=== PATIENT | female | born 1965 | race African-American/Black ===

== ENCOUNTER 2021-06-08 16:17 | Emergency (ER) | payer OTHER, SELFPAY ==
[2021-06-08] VITALS (13 sets, daily range): BP systolic 101–176; BP diastolic 61–104; PULSE 75–110; RESP 18–25; TEMP 36.6–36.7; O2SAT 95–100
--- NOTE | ~2021-06-08 | XR_ITS ---
EXAMINATION: XR chest 1V portable DATE: 06/08/2021 18:15 INDICATION: Shortness of breath. COVID positive. TECHNIQUE: frontal and lateral views of the chest were obtained. COMPARISON: None FINDINGS: Mild patchy airspace opacities in the bilateral lower lung zones. No pleural effusion or pneumothorax . The cardiomediastinal silhouette is normal. IMPRESSION: 1. Patchy airspace opacities in the bilateral lower lung zones consistent with COVID pneumonia. Reviewed, dictated and finalized at location H. WORKER
[2021-06-08 18:22] LABS: Basophils Percent Auto 0.5 % (0.2-1.2); Hematocrit 43.9 % (37.0-47.0); Hemoglobin 13.3 g/dL (12.0-15.0); Immature Granulocyte Absolute 0.01 K/mm3 (0.00-0.031); Immature Granulocyte Percent A 0.2 % (0-0.5); Lymphocytes Absolute Auto 0.98 K/mm3 (0.9-3.2); Lymphocytes Percent Auto 23.9 % (18.3-44.2); Mean Corpuscular HGB Conc 30.3 g/dl (32-36); Mean Corpuscular Hemoglobin 25.4 pg (26-34); Mean Corpuscular Volume 83.8 fl (80-100); Mean Platelet Volume 11.8 fl (7.4-10.4); Monocytes Absolute Auto 0.3 K/mm3 (0.1-0.6); Monocytes Percent Auto 7.6 % (2.6-8.5); Neutrophils Absolute Auto 2.8 K/mm3 (1.3-6.7); Neutrophils Percent Auto 67.8 % (45.5-73.1); Platelet Count Result 198 k/mm3 (150-375); Red Blood Count 5.24 M/mm3 (4.2-5.4); Red Cell Distribution Width 14.9 % (11.5-14.5); White Blood Count 4.1 K/mm3 (4.5-10.0)
[2021-06-08 18:54] LABS: Alanine Aminotransferase 31 U/L (4-35); Albumin Level 4.2 g/dL (3.5-5.1); Alkaline Phosphatase 81 U/L (38-126); Anion Gap 7 mmol/L (8-16); Aspartate Amino Transferase 59 U/L (14-36); Bilirubin,Total 0.6 mg/dL (0.2-1.3); Blood Urea Nitrogen 14 mg/dL (7-17); Calcium 8.5 mg/dL (8.4-10.2); Carbon Dioxide 22 mmol/L (22-30); Chloride 102 mmol/L (98-107); Estimated CRCL calculation 76 ml/min; Estimated Glomerular Filt Rate > 60; Glucose 116 mg/dL (65-110); Lipase 216 U/L (23-300); Potassium 4.5 mmol/L (3.4-5.0); Sodium 131 mmol/L (137-145)
[2021-06-08] MEDS: BENZONATATE 100 MG CAPSULE 200 MG PO (19:35)
--- NOTE | 2021-06-08 20:45 | ED.GENADULT ---
HPI - General Adult General Chief complaint: Unspecified Stated complaint: COVID positive, hallucinating Time Seen by Provider: 06/08/21 18:58 History of Present Illness HPI narrative: Patient is a 55-year-old female who presents ER with Covid related symptoms. Patient began feeling ill on 05/30 and was diagnosed 2 days later. She has been having fevers and chills and weakness. She has cough with occasional shortness of breath. She has lost taste and smell. She reports that when she is sleeping she has bad dreams. This is making her anxious. She has no PCP and has not received monoclonal antibodies. Related Data Allergies Allergy/AdvReac Type Severity Reaction Status Date / Time No Known Allergies Allergy Verified 06/08/21 19:40 Review of Systems Review of Systems: All systems reviewed & are unremarkable except as noted in HPI and below Constitutional: Constitutional: Reports chills, Reports fatigue, Reports fever(s) and Reports lethargy ENT: Reports nasal congestion and Denies sore throat Comments: Loss of taste and smell Cardiovascular: Cardiovascular: Denies chest pain, Denies rapid heart rate and Denies radiating jaw, neck or arm pain Respiratory: Respiratory: Reports cough, Reports dyspnea and Denies wheezing Gastrointestinal: Gastrointestinal: Denies abdominal pain, Reports diarrhea and Reports nausea PMFSH Past Medical History Medical History (Updated 06/08/21 @ 22:30 by Jose Antonio Tate MD) Healthy female adult Surgical History Surgical History (Updated 06/08/21 @ 20:56 by Jose Antonio Tate MD) H/O gastric sleeve History of section History of hand surgery Social History Social History (Updated 06/08/21 @ 20:56 by Jose Antonio Tate MD) Smoking status: Never smoker Exam Narrative: GENERAL: Well-appearing, well-nourished, and in no acute distress. HEAD: Normocephalic, atraumatic. EYES: PERRL and EOMI. ENT: Mucous membranes moist. CHEST: Clear to auscultation. No respiratory distress. Frequent coughing. HEART: Regular rate and rhythm. Normal peripheral pulses. ABDOMEN: Soft, nontender, nondistended. EXTREMITIES: Normal range of motion. No edema. SKIN: Warm, dry, no rash. NEURO: Alert and oriented x3. PSYCH: Normal mood and affect. Course Course Emergency Course: Patient informed of results. Discharge home with supportive therapy including albuterol and Tessalon Perles. We will give her PCP follow-up. Vital Signs Vital signs: Vital Signs Temperature 97.8 F 06/08/21 16:20 Pulse Rate 110 H 06/08/21 16:20 Respiratory Rate 20 06/08/21 16:20 Blood Pressure 131/90 06/08/21 16:20 Pulse Oximetry 95 06/08/21 16:20 Temperature 98.1 F 06/08/21 18:30 Pulse Rate 90 06/08/21 20:32 Respiratory Rate 20 06/08/21 20:32 Blood Pressure 108/69 06/08/21 20:01 Pulse Oximetry 98 06/08/21 20:32 Medical Decision Making Vital Signs Vital Signs: Vital Signs Temperature 97.8 F 06/08/21 16:20 Pulse Rate 110 H 06/08/21 16:20 Respiratory Rate 20 06/08/21 16:20 Blood Pressure 131/90 06/08/21 16:20 Pulse Oximetry 95 06/08/21 16:20 Temperature 98.1 F 06/08/21 18:30 Pulse Rate 90 06/08/21 20:32 Respiratory Rate 20 06/08/21 20:32 Blood Pressure 108/69 06/08/21 20:01 Pulse Oximetry 98 06/08/21 20:32 Lab Data Result diagrams: 06/08/21 18:16 06/08/21 18:33 Labs: Lab Results 06/08/21 06/08/21 06/08/21 Range/Units 18:16 18:33 20:51 WBC 4.1 L (4.5-10.0) K/mm3 RBC 5.24 (4.2-5.4) M/mm3 Hgb 13.3 (12.0-15.0) g/dL Hct 43.9 (37.0-47.0) % MCV 83.8 (80-100) fl MCH 25.4 L (26-34) pg MCHC 30.3 L (32-36) g/dl RDW 14.9 H (11.5-14.5) % Plt Count 198 (150-375) k/mm3 MPV 11.8 H (7.4-10.4) fl Immature Gran % (Auto) 0.2 (0-0.5) % Neut % (Auto) 67.8 (45.5-73.1) % Lymph % (Auto) 23.9 (18.3-44.2) % [place] % (Auto) 7.6 (2.6-8.5) % Eos
[2021-06-08 21:07] LABS: Add Urine Microscopic? YES; Appearance Urine Clear (Clear); Bacteria Urine Trace /hpf; Bilirubin Urine Negative (Negative); Color Urine Amber (Yellow); Glucose Urine UA Negative (Negative); Ketones Urine 1+ mg/dL (Negative); Leukocyte Esterase Ur Trace LEU/UL (Negative); Mucus Urine Heavy /lpf; Nitrate Urine Negative (Negative); Protein Urine 2+ mg/dL (Negative); Specific Grav Ur 1.029 (1.001-1.035); Squamous Epithelial Cell Urine Occasional /hpf (Few); Urobilinogen Urine Negative mg/dL (<2.0)
[2021-06-08 21:10] LABS: Blood Urine Negative (Negative)
== END 2021-06-08 22:55 | disposition home or self-care (01) ==
PROVIDERS: Emergency Medicine; Emergency Provider Emergency Medicine
DX: U07.1 COVID-19 (principal); J12.82 Pneumonia due to coronavirus disease 2019
CPT/HCPCS: 36415; 71045; 80053; 81001; 83690; 85025; 87086; 87088; 99283; A9270

== ENCOUNTER → 2021-08-29 04:42 | Outpatient (CLI) | payer OTHER, SELFPAY ==
[2021-08-29 11:30] LABS: SARS-CoV-2 RNA PCR Negative
== END ==
PROVIDERS: PCP Family Medicine; Visit Provider Surgery
DX: Z01.812 Encounter for preprocedural laboratory examination (principal); Z20.822 Contact with and (suspected) exposure to COVID-19
CPT/HCPCS: C9803; U0003; U0005

== ENCOUNTER 2021-09-01 01:08 | Day surgery (SDC) | payer OTHER, SELFPAY ==
[2021-08-27 10:14] VITALS: BMI 38.7
--- NOTE | 2021-08-27 10:26 | PC.NURSE ---
Report to the Outpatient Waiting Room, entrance under the green pavilion located off [facility], at time 1130 on date 09/01/21. OR Time: 1330. - You and your visitor will be asked a series of questions to screen for COVID 19 for your protection. - A mask is required within the hospital. One visitor will be allowed to accompany the patient into the hospital. Patients visitor will be instructed to remain with patient at all times or leave the building. We will allow the visitor to come back to the postoperative area when patient is ready. Preoperative COVID Testing Requirements: COVID TEST 08/29 AT 0910 No COVID Test needed if: (proof is required; if not received patient will have Rapid Test prior to entry) - Patient has received COVID Vaccine at least 14 days prior to procedure date or - Patient has positive COVID test result within last 90 days of surgery date. COVID Test needed if above criteria is not met If not COVID vaccinated a COVID test must be conducted within 72 hours of surgery and patient is asked to isolate self from time of testing until procedure. You will go to the [facility] for your COVID testing. The [facility] site is located at the corner of [address] [facility]. You will only be called if COVID results are positive and your surgeon may reschedule your elective surgery date. Patients may have clear liquids (water, carbonated beverages, clear teas, apple juice) until 3 hours prior to surgery with a maximum of 20 ounces. - No food from midnight until time of surgery Take the following medications with a SIP of water the morning of surgery: CEPHALEXIN, OXYCODONE (IF NEEDED) Medications to discontinue per physician: VITAMINS/SUPPLEMENTS Date to take last dose: 08/28/21 Please no make-up, nail urdu, hairspray, perfume, deodorant, or body powder the day of surgery. No jewelry (including any body piercings) or valuables the day of surgery, leave them at home. Please take a shower or bath the night before, or the morning of, surgery with an antibacterial soap. Wear comfortable, loose fitting clothing. - Jewelry must be removed prior to entering the operating room. Rings and piercings that are not removed may be cut off. - The hospital will not accept responsibility for valuables. - Please leave all valuables, including medications, at home the day of surgery. If you are going home after surgery, a licensed peg driver must drive you home. - NO public transportation without another adult. - We recommend that an adult stay with you for 24 hours following discharge. - We also recommend that you do not drive, make important decision, drink alcoholic beverages, or take any drugs that were not prescribed by your health care provider for at least 24 hours after your discharge time. Follow any additional instructions given to you from your surgeon. Telephone instructions given to URSZULA KING and asked if any additional questions and then verbalized understanding. Patient advised to call surgeon office or pre surgery nurse liaison [phone] if any additional questions.
[2021-09-01 12:30] VITALS: BP 155/106; PULSE 71; RESP 16; TEMP 36.1; O2SAT 100
[2021-09-01] MEDS: LACTATED RINGERS 1,000 ML 30 ML IV CONT (12:30)
[2021-09-01 12:55] VITALS: BP 154/90; PULSE 68
--- NOTE | 2021-09-01 13:11 | P.PNAN_ITS ---
Anes - Initial Pre Proc Eval Procedure: Operation Date: 09/01/21 13:30 Proposed Procedures p Excision of Left Shoulder Subcutaneous Mass - Handy Banda MD Date/Time: 09/01/21 13:11 Surgeon: Handy Banda MD Pre Op Diagnosis: Lt Shoulder Mass Patient Data Age: 55 Gender: F Height: 1.68 m Weight: 108 kg Last Vital Signs Temp 36.1 C L 09/01/21 12:30 Pulse 68 09/01/21 12:55 Resp 16 09/01/21 12:30 BP 154/90 H 09/01/21 12:55 Pulse Ox 100 09/01/21 12:30 Allergies Allergy/AdvReac Type Severity Reaction Status Date / Time No Known Allergies Allergy Verified 09/01/21 12:49 Home Medications Medication Instructions Recorded Confirmed Type oxycodone 10 mg tablet 10 mg PO Q8H PRN 06/18/21 09/01/21 History omeprazole 40 mg capsule,delayed 40 mg PO DAILY PRN 08/15/21 09/01/21 History release cephalexin 500 mg capsule 500 mg PO Q8H 08/21/21 09/01/21 History multivitamin with iron 1 tablet PO DAILY 08/21/21 09/01/21 History cholecalciferol (vitamin D3) 50 50 mcg PO BID cap 08/26/21 09/01/21 History mcg (2,000 unit) capsule Patient hx anesthesia problems: none Family hx anesthesia problems: none Results Review: All pre-operative results and documents have been reviewed as part of the pre-operative evaluation. [facility] Past Medical History Medical History History of blood transfusion Ingrown toenail ANTONIA (obstructive sleep apnea) Vitamin D deficiency Surgical History Surgical History Bilateral bunions H/O gastric sleeve (~2013) History of bunionectomy of both great toes History of section (~1987) 1992 History of hand surgery (Unknown) 2020 right hand Hx of gastric bypass 2020 Revision (now has Edcu-R-hepyffn bypass) Social History Social History Social History: Single lives with son. Smoking status: Never smoker Alcohol intake: never Substance use: never Substance use type: does not use Living arrangements: with family Gender identity (if verbalized by the patient): Female Sexual Orientation (if Verbalized by the Patient): Straight or Heterosexual Spiritual care concerns: No Agree to blood products: Yes Anes - Eval Final PreProcedure Day of Procedure 09/01/21 13:11 Patient weight: obese Heart: regular rate and rhythm Lungs: decreased breath sounds Airway: Mallampati scale class II Neurological: alert and oriented Last oral intake: >/= 8 hours ASA classification: III Emergent: no Anesthetic plan: proceed Anesthesia type and monitoring: general GIVS and standard monitoring Results Review: All pre-operative results and documents have been reviewed as part of the pre-operative evaluation. Informed Consent: The patient's anesthetic plan and its attendant risks and benefits were discussed with the patient/family/POA. Questions were solicited and answers provided to the satisfaction of the patient/family/POA.
--- NOTE | 2021-09-01 13:20 | WPDHPUPDATE1 ---
History and Physical Update Update Date/Time: 09/01/21 13:20 History and Physical has been reviewed, including an updated exam of the patient. There are NO changes in the patient's condition. Risks, benefits, and alternatives have been discussed and questions answered. Patient agrees to proceed with procedure.
[2021-09-01] MEDS: ceFAZolin 2 GM/D5W 50 ML 2 GM/50 ML BAG IVPB (13:46)
[2021-09-01] MEDS: BUPIVACAINE/EPINEPHRINE 0.25% 10 ML VIAL 20 ML INFILTRATE (14:11)
[2021-09-01 14:38] VITALS: BP 113/68; PULSE 75; RESP 14; O2SAT 95
--- NOTE | 2021-09-01 14:52 | W.PM.PROC2 ---
Procedure Note - Detailed Date of Procedure 09/01/21 Pre-op Diagnosis Lt Shoulder subcutaneous Mass Post-op Diagnosis Same (Suspected lipoma) Procedure Performed Excision of subcutaneous mass top of left shoulder (4 x 2.5cm) Surgeon Handy Banda MD Instrument And Control Technician BERNADETTE Rene, OR 1st assist Anesthesia Local (0.25% Marcaine with epinephrine) and Other (GIVS with LMA) Indications Patient has an enlarging subcutaneous mass that is given assumed if her discomfort on the top of her left shoulder. This is situated right where her bra strap comes across her shoulder. Findings Abnormal appearing subcutaneous fat consistent with lipoma. Description of Procedure The patient was placed in the supine position. After induction of general anesthesia with an LMA placement we positioned the patient with a bump behind her left shoulder and back to rotate her slightly toward the right. After a surgical time out confirming patient and procedure the patient was prepped and draped in the usual sterile fashion. This exposed the top of the left shoulder nicely. The subcutaneous mass was positioned on the superior or upper side of the left shoulder prior to excision it measured about 5 x 2.5 cm in size. Local anesthetic was administered subcutaneously directly over the palpable soft mass. A direct incision was made over the lesion. I then carefully made a incision lifting the skin off of the subcutaneous mass both anteriorly and superiorly. Once it was visible within the incision having incise the subcutaneous tissue over it and began bulging through the subcutaneous tissue we grasped it with a Allis clamp. There was a thin capsule on the lipoma. I continued to elevate this and dissected it with Bovie cautery off the underlying fascial tissues and the overlying skin from lateral to medial until it was completely removed. A small satellite lipoma was removed medial to the large one. This was sent in the same container and was only about 0.5 x 0.5 cm in size. The excision was done taking a thin margin circumferentially. I dissected down to the deep subcutaneous tissues and then completely excised the lesion. Bleeding was controlled with electrocautery. A carefully inspected the entire inside portion of the cavity where the lipoma had been sitting. There was no other obvious fatty masses and no bleeding The wound was closed in two layers. I closed the subcutaneous tissue with interrupted sutures. An un-dyed 3-0 vicryl deep dermal and then a 4-0 undyed Monocryl running subcuticular closure was completed. Surgical glue applied as dressing. Patient tolerated this well. Implants none Estimated Blood Loss 3 Drains No Packing No Pathology Yes (4.0 x 2.5 cm mass) Complications No immediate complications Condition Stable Disposition Same day
[2021-09-01 15:08] VITALS: BP 134/87; PULSE 55; RESP 14; O2SAT 98
[2021-09-01 15:38] VITALS: BP 113/68; PULSE 75; RESP 14
[2021-09-01 16:08] VITALS: BP 122/79; PULSE 70; RESP 14
== END 2021-09-01 16:35 | disposition home or self-care (01) ==
PROVIDERS: PCP Family Medicine; Visit Provider Surgery
PROC: (CPT 24071; principal; 2021-09-01 13:30)
DX: D17.22 Benign lipomatous neoplasm of skin and subcutaneous tissue of left arm (principal); G47.33 Obstructive sleep apnea (adult) (pediatric); E55.9 Vitamin D deficiency, unspecified; Z98.0 Intestinal bypass and anastomosis status; E66.9 Obesity, unspecified; Z68.38 Body mass index [BMI] 38.0-38.9, adult
CPT/HCPCS: 24071; 88304; J0690; J1100; J2250; J2405; J2704; J3010; J7120

== ENCOUNTER 2021-11-29 08:44 | Outpatient (CLI) | payer OTHER, SELFPAY ==
--- NOTE | ~2021-11-29 | MR_ITS ---
EXAMINATION: MR lumbar spine wo con DATE: 11/29/2021 09:46 INDICATION: M79.606 - Pain in leg, unspecified . TECHNIQUE: Magnetic resonance imaging (MRI) of the lumbar spine was performed without intravenous con trast. Sequences included sagittal T2-weighted FSE, sagittal T2-weighted FS FSE, sagittal T1-weighted FSE, and axial T2-weighted FSE. COMPARISON: None FINDINGS: The last fully formed and hydrated disc is designated L5-S1. The marrow signal is benign an d homogenous. 2 mm anterolisthesis of L4 on L5 Conus terminates at L1. Multilevel disc dehydration. T he following disc levels are specifically discussed: T11-T12: The disc does not extend beyond the endplate margin. There is mild facet joint osteoarthriti s. There is no neural foraminal stenosis. There is no central canal stenosis. T12-L1: The disc does not extend beyond the endplate margin. There is moderate facet joint osteoarthr itis. There is no neural foraminal stenosis. There is no central canal stenosis. L1-L2: Mild diffuse bulge There is moderate facet joint osteoarthritis. There is no neural foraminal stenosis. There is no central canal stenosis. L2-L3: The disc does not extend beyond the endplate margin. There is moderate facet joint osteoarthri tis. There is no neural foraminal stenosis. There is no central canal stenosis. L3-L4: Moderate diffuse bulge. There is moderate facet joint osteoarthritis. There is mild bilateral neural foraminal stenosis. There is mild central canal stenosis. L4-L5: Moderate diffuse bulge. There is severe facet joint osteoarthritis. There is moderate bilatera l neural foraminal stenosis. There is moderate central canal stenosis. L5-S1: Moderate diffuse bulge. There is severe facet joint osteoarthritis. There is severe bilateral neural foraminal stenosis. There is no central canal stenosis. IMPRESSION: 1. Moderate central canal narrowing at L4-5 caused by combination of degenerative disc and facet lopes ges and a grade 1 anterolisthesis. 2. Severe bilateral neural foraminal narrowing at L5-S1. 3. Severe facet arthropathy in the lower lumbar spine. Reviewed, dictated and finalized at location K. IMPRESSION: 1. Moderate central canal narrowing at L4-5 caused by combination of degenerati ve disc and facet changes and a grade 1 anterolisthesis. 2. Severe bilateral neural foraminal narrowing at L5-S1. 3. Severe facet arthropathy in the lower lumbar spine.
== END 2021-11-29 08:45 | disposition home or self-care (01) ==
PROVIDERS: PCP Family Medicine; Visit Provider Nurse Practitioner Family
DX: M79.606 Pain in leg, unspecified (principal)
CPT/HCPCS: 72148

== ENCOUNTER 2022-06-19 12:30 | Outpatient (CLI) | payer OTHER, SELFPAY ==
--- NOTE | ~2022-06-19 | XR_ITS ---
EXAMINATION: XR lumbar spine min 4V DATE: 06/19/2022 12:48 INDICATION: Right-sided low back pain TECHNIQUE: Anteroposterior, lateral in neutral, flexion and extension, and bilateral oblique views of the lumbar spine, and cone-down lateral view of the lumbosacral junction were obtained. COMPARISON: None. FINDINGS: There are 5 mm of anterolisthesis of L4 on L5 and L5 on S1. No hypermobility is present wit h flexion or extension. There is no fracture. The vertebral body heights are normal. The intervertebr al disc spaces are maintained. There is severe facet joint osteoarthritis at L4-5 and L5-S1. Surgical clips in the surgical anastomosis are noted in the left upper quadrant as well as the left mid abdom en. IMPRESSION: 1. Mild lumbar spondylosis without acute findings. Reviewed, dictated and finalized at location A. [facility] [employer]
== END 2022-06-19 12:31 | disposition home or self-care (01) ==
PROVIDERS: PCP Family Medicine; Visit Provider Neurological Surgery
DX: M48.061 Spinal stenosis, lumbar region without neurogenic claudication (principal); M47.896 Other spondylosis, lumbar region
CPT/HCPCS: 72110

== ENCOUNTER 2022-11-11 17:04 | Outpatient (CLI) | payer OTHER, SELFPAY ==
--- NOTE | ~2022-11-11 | MR_ITS ---
MRI of the lumbar spine Clinical History: Back pain Technique: Axial T2-weighted images, and sagittal T1-weighted, T2-weighted, and T2 fat-sat images wer e acquired. COMPARISON: 11/29/2021 Findings: There is no fracture or subluxation of the lumbar spine. Vertebral bodies maintain normal h eight and alignment. No suspicious bone marrow signal abnormality identified. At L1-L2 and L2-L3, there is moderate facet arthropathy bilaterally. No disc bulge or herniation at t hese levels. No spinal canal stenosis or neural foraminal narrowing at these levels. At L3-L4, there is degenerative disc narrowing. Minimal disc bulge and advanced facet arthropathy res ult in minimal central canal stenosis. Bilateral neural foramina may be minimally narrowed. At L4-L5, there is diffuse disc bulge and advanced facet arthropathy, resulting in moderate to severe spinal canal stenosis/thecal sac compression. There is moderate left neural foraminal narrowing and mild to moderate right neural foraminal narrowing. At L5-S1, there is no significant disc bulge or herniation. There is advanced facet arthropathy bilat erally. No central canal stenosis. There is severe bilateral neural foraminal narrowing, left worse t starr right. Paravertebral soft tissues are unremarkable. Impression: Moderate to severe degenerative spondylosis at L4-L5, as detailed above. Moderate degenerative spondylosis at L5-S1, as detailed above. Mild degenerative spondylosis at L3-L4, as detailed above. Reviewed, dictated and finalized at [facility]. Impression: Moderate to severe degenerative spondylosis at L4-L5, as detailed above. Moderate degenerative spondylosis at L5-S1, as detailed above. Mild degenerative spondylosis at L3-L4, as detailed above.
== END 2022-11-11 17:05 | disposition home or self-care (01) ==
PROVIDERS: PCP Family Medicine; Visit Provider Neurological Surgery
DX: M43.16 Spondylolisthesis, lumbar region (principal); M47.896 Other spondylosis, lumbar region
CPT/HCPCS: 72148